=== PATIENT | male | born 1980 | race African-American/Black ===

== ENCOUNTER 2025-06-05 08:28 | Outpatient (AMB) | payer OTHER, SELFPAY ==
--- NOTE | 2025-06-05 08:33 | MHC.PC.OV ---
Vital Signs 06/05/25 08:34 Height 6 ft Weight 271 lb 2 oz BMI 36.8 BP 112/84 Blood Pressure Location Lt brachial Position Sitting Respiration 16 Pulse 68 Pulse Source Pulse Oximeter Temp 96.9 F Temp Source Temporal Artery Scan Pulse Oximetry (%) 97 Oxygen Delivery Method Room Air Intake Visit Reasons: 6 month f/u Adult Manager Required: No Accompanied by: Self / Same As Patient Allergies acetaminophen (From Percocet) Allergy (Intermediate, Verified 06/05/25 08:36) hives/blisters oxycodone (From Percocet) Allergy (Intermediate, Verified 06/05/25 08:36) hives/blisters strawberries Adverse Reaction (Intermediate, Uncoded 06/05/25 09:14) itching Medication List - Last Reconciled 06/05/25 by Jeri Betancourt MD albuterol sulfate 90 mcg/actuation 2 puffs inhalation Q4H PRN amlodipine 5 mg PO DAILY cabotegravir ER (Apretude) mg IM carvedilol 25 mg PO BID doxycycline hyclate 100 mg PO BID epinephrine IM DIRECTED lisinopril 40 mg PO DAILY multivitamin 1 tab PO DAILY omeprazole 20 mg PO BID ondansetron HCl 4 mg PO TID PRN psyllium husk (Daily Fiber) 0.4 grams PO DAILY Tobacco use date assessed: 06/05/25 Dental Screening Dental Screen Date: 06/05/25 Did you have a dental visit in the last 12 months?: Yes Did you have a dental problem in the last 6 months where you did not have access to dental care?: No Was dental information given to patient?: Patient has dentist HPI HPI Comments History of Present Illness Details The patient is a 44 year old individual presenting to [facility]. Sleep Apnea: A sleep study years ago was borderline per patient. The patient has awakened from snoring, endorses apnea. The patient reports a slight chance of dozing off while sitting, reading, or watching TV, and often falls asleep at the movies. The patient struggles to stay awake as a passenger in a car, has dozed off in traffic, and feels sleepy after lunch. Hypertension: The patient's blood pressure is controlled. The patient attributes this to drinking a lot of water and cutting out soft drinks. Asthma and Allergies: The patient was diagnosed with seasonal asthma by Dr. Michell Salazar and uses an albuterol inhaler for reactive airways. Xopenex was considered due to cardiac history however, was not covered by insurance. The patient has an EpiPen for a strawberry allergy and also experienced coughing and sneezing after eating dragon fruit. The patient is scheduled for allergy testing next week. Cardiac Pacemaker: The patient reports that one of the pacemaker wires is not working well and was turned off by the gold frame assembler to conserve the battery. An echocardiogram per patient report showed an ejection fraction of 50%, which is stable. The patient experiences occasional, non-severe palpitations that are not concerning. Gastrointestinal Issues(GERD/IBS): The patient takes omeprazole for GERD but has not seen a GI specialist in over two years. The patient reports intermittent stomach issues and general gut discomfort despite using probiotics. There is a family history of stomach cancer (father), which causes the patient to worry. The patient had a colonoscopy and endoscopy a few years ago after an appendectomy. Anxiety: The patient reports doing well and has not had any panic symptoms. Impaired fasting glucose-due for repeat labs. [facility] Medical History (Updated 06/05/25 @ 17:13 by Jeri Betancourt MD) Epigastric pain Daytime somnolence Apnea Gastritis Reactive airway disease IBS (irritable bowel syndrome) Impaired fasting glucose Congenital heart block Generalized anxiety disorder GERD (gastroesophageal reflux disease) Primary hypertension Pacemaker Surgical History (Updated 06/05/25 @ 08:48 by Jeri Betancourt MD) History of appendectomy Family History (Updated 06/05/25 @ 08:49 by Jeri Betancourt MD) Other Stomach cancer Social History Housing: House Patient Tobacco Use Status: Never used Tobacco e-Cigarette/Vaping Use: Never Used service: No Current occupational status: employed Current occupation: [employer] Questionnaire PHQ-9 Over the last 2 weeks, how often have you been bothered by any of the following problems? 1. Little interest or pleasure in doing things: not at all 2. Feeling down, depressed, or hopeless: not at all 3. Trouble falling or staying asleep, or sleeping too much: not at all 4. Feeling tired or having little energy: not at all 5. Poor appetite or overeating: not at all 6. Feeling bad about yourself - or that you are a failure or have let yourself or your family down: not at all 7. Trouble concentrating on things, such as reading the newspaper or watching television: not at all 8. Moving or speaking so slowly that other people could have noticed. Or the opposite - being so fidgety or restless that you have been moving around a lot more than usual: not at all 9. Thoughts that you would be better off or of hurting yourself in some way: not at all Total score: 0 Depression Screening Interpretation: Negative Depression Screening Done: Yes 69634 - PHQ-9 Billing: Yes Source: Developed by Drs. Riki Carolina, Yadi Martínez, Donald King and colleagues, with an educational anastacia from [employer]. AUDIT C Alcohol Use Questionnaire (AUDIT-C) 1. How often do you have a drink containing alcohol?: Monthly or less 2. How many drinks containing alcohol do you have on a typical day when you are drinking?: 1 or 2 3. How often do you have six or more drinks on one occasion?: Never Total Score: 1 Review of Systems Narrative Review of Systems - General: Reports feeling well. - Cardiovascular: Reports occasional non-severe flutter/palpitations. - Respiratory: Reports feeling stuffy - Gastrointestinal: Reports epigastric discomfort. - Allergic/Immunologic: Reports coughing and sneezing after eating dragon fruit - Neurological/Sleep: per hpi - Psychiatric: Denies panic symptoms. Physical exam (Primary Care) Vital Signs: Last Vital Signs Temp 96.9 F 06/05/25 08:34 Pulse 68 06/05/25 08:34 Resp 16 06/05/25 08:34 BP 112/84 06/05/25 08:34 Pulse Ox 97 06/05/25 08:34 Oxygen Delivery Method Room Air 06/05/25 08:34 BMI result Body Mass Index 36.8 Tobacco/Smoking Status: Tobacco use Status Tobacco use date assessed 06/05/25 06/05/25 08:40 Patient Tobacco Use Status Never used Tobacco 06/05/25 08:40 e-Cigarette/Vaping Use Never Used 06/05/25 08:40 PHQ-9: PHQ-9 Score PHQ-9: Total score 0 06/05/25 09:07 Depression Screening Interpretation: Negative Narrative Physical Exam - General: Appears well. - Respiratory: Patient struggles to take a full inspiration, slight wheezing auscultated. - Cardiovascular: Normal rate and rhythm, soft murmur noted. - Abdomen: Tenderness to palpation in the epigastric region. - Extremities: no edema bilaterally Coding Level of Care Code Est Pt Level 4 (30727) Complex visit Add On G2211 Diagnoses Gastroesophageal reflux disease, unspecified whether esophagitis present K21.9 Esophagitis presence: esophagitis presence not specified Irritable bowel syndrome, unspecified type K58.9 Irritable bowel syndrome type: unspecified Gastritis, presence of bleeding unspecified, unspecified chronicity, unspecified gastritis type K29.70 Gastritis type: unspecified gastritis Chronicity: unspecified Gastritis bleeding: presence of bleeding unspecified Pacemaker Z95.0 Impaired fasting glucose R73.01 Primary hypertension I10 Additional Codes PHQ-9 - 35090 - PHQ-9 Billing: Yes ([id number]) Assessment & Plan Assessment & Plan (1) GERD (gastroesophageal reflux disease): Code(s): K21.9 - Gastro-esophageal reflux disease without esophagitis Category: Medical Qualifiers: Esophagitis presence: esophagitis presence not specified Qualified Code(s): K21.9 - Gastro-esophageal reflux disease without esophagitis (2) IBS (irritable bowel syndrome): Code(s): K58.9 - Irritable bowel syndrome, unspecified Category: Medical Qualifiers: Irritable bowel syndrome type: unspecified Qualified Code(s): K58.9 - Irritable bowel syndrome, unspecified (3) Gastritis: Code(s): K29.70 - Gastritis, unspecified, without bleeding Category: Medical Qualifiers: Gastritis type: unspecified gastritis Chronicity: unspecified Gastritis bleeding: presence of bleeding unspecified Qualified Code(s): K29.70 - Gastritis, unspecified, without bleeding (4) Pacemaker: Code(s): Z95.0 - Presence of cardiac pacemaker Category: Medical (5) Impaired fasting glucose: Code(s): R73.01 - Impaired fasting glucose Category: Medical (6) Primary hypertension: Code(s): I10 - Essential (primary) hypertension Category: Medical Plan Assessment and Plan 1. Suspected Sleep Apnea - Patient reports symptoms of excessive daytime sleepiness, includes dozing off while driving, and awakens from snoring. - [place] Sleepiness Scale score is 8. - Plan is to refer the patient to our sleep medicine group for evaluation and a sleep study. 2. Seasonal Asthma/Reactive Airway Disease - Patient is currently symptomatic with stuffiness and wheezing on exam - This is likely exacerbated by weather changes. - Plan is to advise use of albuterol inhaler, with one puff at a time spread throughout the day to a maximum of four puffs to avoid tachycardia. - Patient will see Dr. Salazar for allergy testing next week. 3. Epigastric Pain and GERD - Patient has ongoing GERD managed with omeprazole and new epigastric tenderness on exam. - Given the family history of stomach cancer, a referral to Gastroenterology is warranted for further evaluation. - A lipase level will be added to today's labs to rule out pancreatitis as a cause of the tenderness. 4. Hypertension - Well-controlled on current medications (amlodipine, carvedilol, lisinopril). - Lifestyle modifications, including increased water intake and reduced soft drink consumption, are noted and encouraged. 5. Cardiac Status - The patient is stable with an in situ cardiac pacemaker. - Sports Medicine Coordinator is in [place], pt will transfer records - Follow up with cardiology 6. Anxiety - The patient is stable and reports no panic symptoms - Lorazepam 0.5 mg for severe episodes . Follow up in 6 months Plan - Place referral to sleep medicine for evaluation of suspected sleep apnea. - Place referral to gastroenterology for evaluation of ongoing GERD, epigastric pain, and surveillance given family history of stomach cancer. - Advise patient to use albuterol inhaler, one puff at a time and spread out, up to four times per day as needed for wheezing. - Patient to follow up with Dr. Salazar (Allergy) next week as scheduled. Discussion Notes I had a detailed discussion with the patient about the high suspicion for sleep apnea, based on the reported symptoms of excessive daytime sleepiness, dozing off, and snoring. I explained that we would place a referral to our sleep specialists for further evaluation, which will likely include a new sleep study. We also discussed the current epigastric tenderness and GERD history; given the patient's concern and family history of stomach cancer, I recommended a referral to our GI department for follow-up care. Regarding the reactive airway symptoms and wheezing found on exam, I advised the patient on the proper use of the albuterol inhaler to manage symptoms while minimizing side effects like tachycardia. Patient Instructions - Our office will send a referral to a sleep specialist for your sleepiness. You should hear from them within two weeks. - Our office will also send a referral to a stomach doctor (Gastroenterology) for your stomach discomfort. - Use your albuterol inhaler for your current breathing trouble. You can use one puff at a time, but spread the doses out during the day. Do not use more than four puffs per day. - Continue taking your current medications for blood pressure. Orders: Orders Hemoglobin A1c Today I10 - Essential (primary) hypertension, R73.01 - Impaired fasting glucose Microalbumin, Random (w Creat) Today I10 - Essential (primary) hypertension Comprehensive Met. Panel Today I10 - Essential (primary) hypertension, R73.01 - Impaired fasting glucose Lipase Today R10.13 - Epigastric pain Referrals Sleep Medicine Referral R06.81 - Apnea, not elsewhere classified, R06.83 - Snoring, R40.0 - Somnolence Gastroenterology Referral K21.9 - Gastro-esophageal reflux disease without esophagitis, K29.70 - Gastritis, unspecified, without bleeding Medications: New ondansetron HCl 4 mg PO TID PRN 30 tabs 10RF nausea/vomiting lorazepam 0.5 mg PO DAILY PRN 30 tabs 2RF anxiety
[2025-06-05 08:34] VITALS: BP 112/84; PULSE 68; RESP 16; TEMP 36.1; O2SAT 97; BMI 36.8
--- OUTSIDE RECORDS SUMMARY | 2025-06-05 09:15 | XMS_ITS | Data Portability ---
Author Organization [facility], PAIN OFFICE Address [address] [facility],[address] [address] Care Team Providers Care Terrazzo Mechanic Name Role Phone FERMÍN VELA Primary Care Provider [phone] Assessment Encounter Date Assessment Date Assessment LastModified by Organization Details LastModified Time 06/12/2024 06/12/2024 Sulaiman Fritz is a 43 year old man with neck and left upper back pain. He has myofascial pain syndrome in his left upper back. Trigger points were palpated with reproduction of his pain in his left trapezius muscle . Trial of trigger point injections in left trapezius muscle under ultrasound guidance were discussed with him. The risks and benefits of the procedure were discussed and he wishes to proceed and an appointment has been made for the same. He is having an EMG/NCV study with Dr. Thomas and will forward the results [email or web address] Not available 06/12/2024 09:57:00 12/16/2024 12/16/2024 Sulaiman Fritz is a 44 year old man with neck and left upper back pain. He has myofascial pain syndrome in his left upper back. Trigger points were palpated with reproduction of his pain in his left trapezius muscle .He is here for trial of trigger point injections in left trapezius muscle under ultrasound guidance . The risks and benefits of the procedure were discussed and he wishes to proceed He will follow up in 6 to 8 weeks [email or web address] Not available 12/16/2024 14:58:09 Plan of Treatment Reminders Order Date Submit Date Provider Last Modified By Organization Details Last Modified Time Details Appointments None record ed. Lab None record ed. Referral None record ed. Procedures None record ed. Surgeries None record ed. Imaging None record ed. Medication Orders None record ed. Patient TargetsNo targets recorded. Patient InstructionsNo instructions recorded. Reason for Referral None Reported. Problems Name Problem SNOMED Code Status Onset Date Resolution Date Notes Provider Name and Address Organization Details Recorded Time Muscle pain 69658167 Active 2023 Micah montilla MD [address] , [address], [place], [address], [place] [facility] 4 09:57:07 Degeneration of cervical intervertebral disc 90894669 Active 2023 Micah montilla MD [address] , [address], [place], [address], [place] [facility] 09:57:09 Cervical spondylosis without myelopathy 692717991 Active 2023 Micah montilla MD [address] [facility] , [address], [place], [address], [place] [facility] 09:57:13 Notes:?cervical radiculitis referred by Dr. Vela, CT in note, EMG has been ordered secondary to tingling in left hand and fingers Problem Notes None recorded. Procedures Surgical History Date Name Laterality Status Provider Name and Address Organization Details Recorded Time 12/17/19 25 Trigger Point Injections under ultrasound guidance completed Micah Art MD [address] , [address], [place], [address], [place] [facility] 12/16/2024 14:57:04 cardiac pacemaker procedure completed Nubia Boyle [place] [facility] 06/03/2024 12:14:18 Appendectomy completed Nubia Boyle [place] [facility] 06/03/2024 12:14:36 Imaging Results None recorded. Procedure Notes None recorded. Medical Equipment None Reported. Allergies Allergen ID Allergen Name Allergen Category Reaction Reaction Severity Criticality Documentation Date Start Date Code Code System Note Provider Name and Address Organization Details Recorded Time Darvocet- N medicatio n Not available Not available Not available 06/03/2024 Nubia bhat, [place] [facility] 12:11:04 04149 amoxicill in medicatio n Not available Not available Not available 06/12/2024 723 RxNorm Nubia bhat, [place] [facility] 4 08:38:05 52912 ampicilli n medicatio n Not available Not available Not available 06/12/2024 733 RxNorm Nubia bhat, [place] [facility] 4 08:38:24 Medications Name Sig Start Date Stop Date Status Note LastModified by Organization Details LastModified Time carvedilol 25 mg tablet TAKE 1 TABLET BY MOUTH TWICE A DAY WITH FOOD active Not Available Not Available No t Available ondansetron HCl 4 mg tablet TAKE 1 TABLET BY MOUTH 3 TIMES A DAY NEEDED FOR NAUSEA/VOM ITING active Not Available Not Available No t Available amlodipine 5 mg tablet TAKE 1 TABLET (5 MG TOTAL) BY MOUTH DAILY. active Not Available Not Available No t Available omeprazole 20 mg capsule,delay ed release TAKE 1 CAPSULE BY MOUTH TWICE A DAY active Not Available Not Available No t Available lisinopril 40 mg tablet TAKE 1 TABLET BY MOUTH EVERY DAY active Not Available Not Available No t Available doxycycline hyclate 100 mg tablet active Not Available Not Available No t Available dicyclomine 10 mg capsule TAKE 1 CAPSULE BY MOUTH 4 TIMES A DAY FOR 10 DAYS NEEDED FOR ABDOMINAL CRAMPING active Not Available Not Available No t Available emtricitabine 200 mg-tenofovir disoproxil fumarate 300 mg tablet TAKE 1 TABLET BY MOUTH EVERY DAY active Not Available Not Available No t Available omeprazole 40 mg active Not Available Not Av ailable Not Available amlodipine 5 mg active Not Available Not Av ailable Not Available Probiotic active Not Available Not Silva ilable Not Available Multi For Him (no iron) active Not Available Not Available No t Available aspirin 81 mg capsule Take 1 capsule every day by oral route. active Not Available Not Available No t Available Vitals Date Recorded Body height Heart rate Oxygen saturation Pain severity - 0-10 verbal numeric rating [Score] - Reported Systolic And Diastolic Provider Name and Address Organization Details Last Updated DateTime 12/16/2024 182.88 cm 66 /min 98 % 4 132/90 mm[Hg] Rosy Chavez ez [facility] 14:05:38 Date Recorded Body height Body mass index (BMI) Body weight Oxygen saturation Pain severity - 0-10 verbal numeric rating [Score] - Reported Heart rate Systolic And Diastolic Provider Name and Address Organization Details Last Updated DateTime 4 182.88 cm 37 kg/m2 148750. 72 g 98 % 2 77 /min 127/83 mm[Hg] Nubia Boyle [place] [facility] 08:54:15 Social History Question Answer Notes LastModified by Organizat ion Details LastModified Time Tobacco Smoking Status Never Smoker Nubia Boyle null, [place] [facility] 06/03/2024 12:12:59 Do You Have An Advance Directive? Yes Information n ot available 06/12/2024 Are You Blind Or Do You Have Difficulty Seeing? No Information n ot available 06/12/2024 In The 14 Days Before Symptom Onset, Have You Had Close Contact With A Laboratory-confirm ed COVID-19 While That Case Was Ill? No Information n ot available 06/12/2024 In The 14 Days Before Symptom Onset, Have You Had Close Contact With A Person Who Is Under Investigation For COVID-19 While That Person Was Ill? No Information not available 06/12/2024 Have You Been To An Area Known To Be High Risk For COVID-19? No Information not available 06/12/2024 Are You Deaf Or Do You Have Serious Difficulty Hearing? No Information not available 06/12/2024 What Is The Highest Grade Or Level Of School You Have Completed Or The Highest Degree You Have Received? [id number] Information not available 06/12/2024 What Is Your Relationship Status? Single Information not available 06/03/2024 Do You Have Difficulty Walking Or Climbing Stairs? No Information not available 06/12/2024 Sex: Male Functional Status Question Answer Note LastModified by Organizat ion Details LastModified Time Do you use any illicit or recreational drugs? No Information not available 06/03/2024 What is your level of alcohol consumption? Occasional Information not available 06/03/2024 Are you currently employed? Yes Information not available 06/12/2024 Do you have difficulty doing errands alone? No Information not available 06/12/2024 What is your occupation? [employer] Information not available 06/12/2024 Do you have difficulty dressing, bathing, grooming, or toileting? No Information not available 06/12/2024 Mental Status Question Answer Note LastModified by Organizat ion Details LastModified Time Do you feel stressed (tense, restless, nervous, or anxious, or unable to sleep at night)? [id number] Lorazepam for sleep Information not available 06/12/2024 Do you have difficulty concentrating, remembering or making decisions? No Information not available 06/12/2024 Family History Relationship Description Onset Age of this Age Resolved Age Notes LastModified by Organization Details LastModified Time Father Malignant neoplasm of stomach [email or web address] Not available 2023 08:41:02 Father Malignant neoplasm of lung [email or web address] Not available 2023 08:41:27 Mother Prediabetes [email or web address] Not avail able 06/12/2024 08:41:42 Medical History Condition Response Coronary Artery Disease N Gout N Neuropathy/Neuralgia N Kidney Stones N Hyperthyroidism N Hypothyroidism N Depression N COPD N Hepatitis C N Migrane Y Diabetes N Anxiety Disorder Y Arthritis N Seizures/Epilepsy N Hyperlipidemia N Cancer N Stroke N Asthma Y HIV/AIDS N Headache N Bipolar Disorder N GERD/Reflux Y High Cholesterol N Liver Disease N Pulmonary Embolism N Fibromyalgia N Irritable Bowel Syndrome N Hypertension Y Osteoporosis N Kidney Disease N Past Encounters Encounter ID Performer Location Encounter Start Date Encounter Closed Date Diagnosis/Indication Diagnosis SNOMED-CT Code Diagnosis ICD10 Code Diagnosis IMO Codes Diagnosis Note [id number] Micah Art MD PAIN OFFICE [address] [place] [address] 06/12/2024 08:29:30 06/12/2024 10:43:25 Muscle pain 20739934 M79.18 Degenerati on of cervical intervertebral disc 64114528 M50.30 Cervical s pondylosis without myelopathy 448016087 M47.812 [id number] Micah Art MD PAIN OFFICE [address] [place] [address] 12/16/2024 14:00:54 12/16/2024 15:24:17 Muscle pain 65374152 M79.18 Degenerati on of cervical intervertebral disc 93606966 M50.30 Cervical s pondylosis without myelopathy 376329633 M47.812 Health Concerns Section Related Observation LastModified by Organization Detai ls LastModified Time None Recorded Concern Status LastModified by Organization Details LastModified Time None Recorded Advance Directives Directive Y: Payers Insurance Date Sequence Insurance Name Policy Number Policy Coffey Covered Member ID Coffey Member ID Guarantor Name 12/15/2024 1 e(ye)[employer]IN [place] ([facility] [id number] Sulaiman Fritz [id number] Sulaiman Fritz Notes Date Note Type Note Provider Name and Address Organization Details Recorded Time 06/12/2024 text/html 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 He feels his left side is weak. He has history of congenital heart block S/P pacemaker . The pain started spontaneously Current pain level is 6/10. He describes the pain as an aching pain. Pain is relieved by ibuprofen and repositioning. Pain interferes with sleep. He has no history of bladder or bowel incontinence.He has had massages and chiropractic treatment with some pain benefit.He has seen a physician at [facility] but has not had injections. Micah Art MD [address] [facility] , [address], [place], [address], [facility] 06/12/2024 11:00:49 12/16/2024 text/html He is here for a trial of trigger point injection in left trapezius muscle under ultrasound guidance Micah Art MD [address] [facility] , [address], [place], [address], [facility] 12/16/2024 15:45:28
== END 2025-06-05 09:33 | disposition home or self-care (01) ==
LOC: HO.HMCHD 08:28
PROVIDERS: Visit Provider Internal Medicine
DX: K21.9 Gastro-esophageal reflux disease without esophagitis (principal); K58.9 Irritable bowel syndrome, unspecified; K29.70 Gastritis, unspecified, without bleeding; Z95.0 Presence of cardiac pacemaker; R73.01 Impaired fasting glucose; I10 Essential (primary) hypertension

== ENCOUNTER 2025-06-05 09:58 | Outpatient (REF) | payer OTHER, SELFPAY ==
[2025-06-05 11:38] LABS: Alanine Aminotransferase 25 U/L (0-40); Albumin Level 4.5 g/dL (3.5-5.0); Alkaline Phosphatase 47 U/L (39-117); Anion Gap 10 (12-20); Aspartate Amino Transferase 24 U/L (5-37); Blood Urea Nitrogen 14 mg/dL (9-16); Calcium 9.4 mg/dL (8.4-10.2); Carbon Dioxide 29 mmol/L (22-29); Chloride 108 mmol/L (96-108); Estimated Glomerular Filt Rate > 60; Lipase 16 U/L (8-78); Potassium 4.2 mmol/L (3.3-5.1); Sodium 143 mmol/L (135-145); Total Protein 7.9 g/dL (6.5-8.0)
[2025-06-05 12:03] LABS: Microalbum/Creatinine Ratio Ur 3.7 ug/mg cr (<30)
--- OUTSIDE RECORDS SUMMARY | 2025-06-05 14:35 | XMS_ITS ---
Author Name [facility] Organization Unknown Results Test Name/Text Value Interpretation Date Range Source Troponin I SerPl HS-mCnc 4.0 ng/L Normal 11/28/2023 0 - 20 [facility] BASOPHILS IN BLOOD BY AUTOMATED COUNT 0.0 K/uL Normal 11/28/2023 0 - 0.2 [facility] MCHC RBC AUTO MCNC 33.4 g/dL Normal 11/28/2023 32 - [facility] EOSINOPHIL NFR BLD AUTO 2.6 % Normal 11/28/2023 0 - 6 [facility] BASOPHILS NFR BLD AUTO 0.2 % Normal 11/28/2023 0 - 2 [facility] LYMPHOCYTES NFR BLD AUTO 36.5 % Normal 11/28/2023 20 - 48 [facility] LYMPHOCYTES NO. BLD AUTO 1.5 K/uL Normal 11/28/2023 1 - 3.2 [facility] HGB BLD MCNC 14.3 g/dL Normal 11/28/2023 13.5 - 18 [facility] H MCV RBC AUTO 83.4 fL Normal 11/28/2023 78 - 100 [facility] H NEUTROPHILS NFR BLD AUTO 52.4 % Normal 11/28/2023 44 - 74 [facility] EOSINOPHIL NO. BLD AUTO 0.1 K/uL Normal 11/28/2023 0 - 0 .5 [facility] IMMATURE GRANULOCYTE, PERCENT 0.0 % Normal 11/28/2023 0 - 1 [facility] PMV BLD AUTO 8.8 fL Normal 11/28/2023 7.4 - [facility] PLATELET NO. BLD AUTO 244.0 K/uL Normal 11/28/2023 150 - 450 [facility] IMMATURE GRANULOCYTE, ABSOLUTE 0.0 k/uL Normal 11/28/2023 - 0.1 [facility] NUCLEATED RBC 0.0 % Normal 11/28/2023 0 - 1 [facility] MONOCYTES NO. BLD AUTO 0.4 K/uL Normal 11/28/2023 0 - 0. 8 [facility] WBC NO. BLD AUTO 4.2 K/uL Normal 11/28/2023 4 - 10.5 [facility] MCH RBC QN AUTO 27.9 pg Normal 11/28/2023 25 - 33 [facility] HCT VFR BLD AUTO 42.8 % Normal 11/28/2023 40 - 54 [facility] RDW RBC AUTO RTO 14.0 % Normal 11/28/2023 12.1 - 17.7 [facility] MONOCYTES NFR BLD AUTO 8.3 % Normal 11/28/2023 2 - 12 [facility] NEUTROPHILS NO. BLD AUTO 2.2 K/uL Normal 11/28/2023 1.8 - 7.8 [facility] RBC NO. BLD AUTO 5.13 M/uL Normal 11/28/2023 4.7 - 6 [facility] BNP BLD MCNC 20.0 pg/mL Normal 11/28/2023 0 - 100 [facility] Glomerular filtration rate/1.73 sq M. predicted 85.0 Normal 11/28/2023 60 - [facility] CREAT SERPL MCNC 1.1 mg/dL Normal 11/28/2023 0.7 - 1.3 [facility] CALCIUM SERPL MCNC 9.8 mg/dL Normal 11/28/2023 8.4 - 10.2 [facility] POTASSIUM SERPL SCNC 3.9 mmol/L Normal 11/28/2023 3.5 - 5 .1 [facility] ANION GAP SERPL SCNC 7.0 mmol/L Normal 11/28/2023 5 - 14 [facility] SODIUM SERPL SCNC 139.0 mmol/L Normal 11/28/2023 135 - 14 5 [facility] GLUCOSE SERPL MCNC 93.0 mg/dL Normal 11/28/2023 70 - 199 [facility] CHLORIDE SERPL SCNC 106.0 mmol/L Normal 11/28/2023 98 - 1 07 [facility] BUN SERPL MCNC 13.0 mg/dL Normal 11/28/2023 9 - 20 [facility] HCO3 SER SCNC 27.0 mmol/L Normal 11/28/2023 24 - 32 [facility] Troponin I SerPl HS-mCnc 3.0 ng/L Normal 11/28/2023 0 - 20 [facility] D DIMER DDU PPP EIA MCNC 155.0 ng/mL DDU Normal 11/28/2023 - 231 [facility] LIPASE SERPL CCNC 16.0 U/L Normal 11/28/2023 11 - 82 [facility] History of Medication Use Medication Directions Dispensed Refills Start Date End Date [facility] aspirin chewable tablet 324 mg 324 mg, Oral, Once, On 11/27/23 at 2145, For 1 dose 11/28/2023 11/28/2023 completed methocarbamol (ROBAXIN) 750 MG tablet Take 1 tablet (750 mg total) by mouth nightly as needed for muscle spasms (This medication can make you drowsy please refrain from driving or operating machinery while on this medication.). 11/07/2022 active ondansetron (ZOFRAN) 4 MG tablet Take 1 tablet (4 mg total) by mouth every 8 (eight) hours as needed for nausea. 03/08/2022 active acetaminophen (TYLENOL) 325 MG tablet Take 2 tablets (650 mg total) by mouth every 6 (six) hours as needed. 02/22/2022 active hydrOXYzine (ATARAX) 10 MG tablet TAKE 1-2 TABLET BY MOUTH AT BEDTIME NEEDED FOR INSOMNIA AND ANXIETY, NEEDED :FOR ITCHING 02/17/2022 active emtricitabine-tenofo vir (TRUVADA) 200-300 MG per tablet Take 1 tablet by mouth daily. 01/18/2022 active OMEprazole (PriLOSEC) 20 MG capsule Take 1 capsule (20 mg total) by mouth 2 (two) times a day. 02/26/2020 active lisinopril (PRINIVIL,ZeSTRIL) 40 MG tablet Take 1 tablet (40 mg total) by mouth daily. 02/21/2020 active lidocaine (LIDODERM) 5 % patch APPLY 1 PATCH DAILY NEEDED, 12 HOURS ON, 12 HOURS OFF 02/11/2020 active ciclopirox (PENLAC) 8 % solution APPLY DAILY TO TOES DIRECTED NEEDED. REMOVE WITH ALCOHOL WIPES AFTER 7 DAYS 02/09/2020 active albuterol (PROVENTIL HFA; VENTOLIN HFA) 108 (90 Base) MCG/ACT inhaler 2 puffs every 4 (four) hours as needed. for wheezing 01/15/2020 active albuterol 108 (90 Base) MCG/ACT inhaler 2 puffs every 4 (four) hours as needed. 01/15/2020 active metoPROLOL SUCCINATE (TOPROL-XL) 25 MG 24 hr tablet Take 1 tablet (25 mg total) by mouth. 11/29/2019 active lisinopril (PRINIVIL,ZESTRIL) tablet 40 mg Take 40 mg by mouth daily. 06/02/2019 active Omeprazole (RA OMEPRAZOLE) 20 MG TBEC Take 40 mg by mouth daily. 08/06/2013 active carvedilol (COREG) 25 MG tablet Take 25 mg by mouth 2 (two) times a day with meals. active loratadine (CLARITIN) 10 MG tablet Take 1 tablet (10 mg total) by mouth. active Psyllium 400 MG Cap Take by mouth. active Allergies Allergen Reaction Severity Comment Documented Date Source Statu s PROPOXYPHENE 02/28/2022 [facility] active OXYCODONE-ACETAMINOPHEN HIVES 02/21/2022 [facility] active OXYCODONE HIVES 03/21/2020 [facility] Problems Problem Status Onset Date Problem Type Date of Resolution Source Paroxysmal ventricular tachycardia active 2018-01-09 ProblemAct [facility] Paroxysmal atrial fibrillation active 2016-08-14 ProblemAct [facility] Chest pain active EncounterDiagnosisAct [facility] S/P appendectomy active 2022-02-28 ProblemAct [facility] Class 2 obesity active 2022-02-28 ProblemAct [facility] Adjustment disorder with anxious mood active 2022-02-28 ProblemAct [facility] Biventricular cardiac pacemaker in situ active 2018-01-09 ProblemAct [facility] Cardiomyopathy active 2015-02-[address] [facility] Congenital heart block active 2013-02-26 ProblemAct [facility] Hypertensive disorder active 2012-02-09 ProblemAct [facility] Acute pain of left shoulder active [facility] Immunizations Vaccine Date Source Lot Number Status Covid-19 (Moderna Booster 18+) 0.25mL dosage 06/18/2021 [facility] [id number] completed Covid-19 (Moderna 12+) 100mcg/0.5mL dosage 10/15/2020 [facility] [id number] completed Covid-19 (Moderna 12+) 100mcg/0.5mL dosage 09/17/2020 [facility] [id number] completed Hepatitis A (Adult) 09/19/2017 [facility] [id number] compl eted Hepatitis A (Adult) 04/05/2017 [facility] [id number] compl eted Influenza Trivalent Vaccine (IIV3) (inactive) 03/27/2017 [facility] completed Tdap 10/13/2015 [facility] [id number] completed Encounters Encounter Type Encounter Reason Primary Diagnosis Location Date Emergency Chest pain, unspecified Chest pain, unspecified [facility] 11/27/2023 Ambulatory Pain in left shoulder [facility] 12/29/2022 [facility] 12/08/2022 Ambulatory Pain in left shoulder [facility] 11/28/2022 Ambulatory Pain in left shoulder [facility] 11/22/2022 Ambulatory Strain of other muscles, fascia and tendons at shoulder and upper arm level, left arm, subsequent encounter [facility] 11/15/2022 Ambulatory Strain of unspecified muscle, fascia and tendon at shoulder and upper arm level, left arm, initial encounter [facility] 11/07/2022 Care Team Organization Name Specialty Phone Email Start Date End Da te [facility] 11/28/2023 [facility] 0 11/28/2023 [facility] 05/19/2023 024 [facility] 11/07/2022 [facility] 06/18/202106/18
== END 2025-06-05 09:59 | disposition home or self-care (01) ==
LOC: HO.10HDL 09:58
PROVIDERS: Visit Provider Internal Medicine
DX: I10 Essential (primary) hypertension (principal); R73.01 Impaired fasting glucose; R10.13 Epigastric pain; G47.30 Sleep apnea, unspecified; J45.909 Unspecified asthma, uncomplicated; K21.9 Gastro-esophageal reflux disease without esophagitis; F41.9 Anxiety disorder, unspecified; K58.9 Irritable bowel syndrome, unspecified; K29.70 Gastritis, unspecified, without bleeding; Z95.0 Presence of cardiac pacemaker; Z79.899 Other long term (current) drug therapy
CPT/HCPCS: 36415; 80053; 82043; 82570; 83036; 83690; 96127